=== PATIENT | female | born 1945 | race Caucasian/White ===

== ENCOUNTER 2020-04-15 16:49 | Outpatient (REF) | payer MEDICARE, SELFPAY ==
[2020-04-15 22:09] LABS: ALT 31 U/L (14-59); AST 29 U/L (15-37); Albumin 3.8 g/dL (3.4-5.0); Alkaline Phosphatase 166 U/L (46-116); Anion Gap 8.8 mmol/L (3-11); BUN 21 mg/dL (7-18); Bilirubin, Total 0.4 mg/dL (0.2-1.0); CO2 28.2 mmol/L (21.0-32.0); CREATININE 1.19 mg/dL (0.55-1.02); Calcium 9.1 mg/dL (8.5-10.1); Chloride 105 mmol/L (98-107); Estimated GFR 44.34 (mL/min/1.73m2); Glucose 77 mg/dL (74-106); Magnesium 2.3 mg/dL (1.8-2.4); Potassium 4.3 mmol/L (3.5-5.1); Sodium 142 mmol/L (136-145); Total Protein 7.6 g/dL (6.4-8.2); Vitamin B12 444 pg/mL (193-986)
== END 2020-04-15 17:09 ==
LOC: NCHCN 16:49
PROVIDERS: PCP Nurse Practitioner Family; Visit Provider Nurse Practitioner Family
DX: I10 Essential (primary) hypertension (principal); K21.9 Gastro-esophageal reflux disease without esophagitis; Z79.899 Other long term (current) drug therapy
CPT/HCPCS: 80053; 82607; 83735

== ENCOUNTER 2021-09-04 15:33 | Outpatient (REF) | payer MEDICARE, MEDICAID, SELFPAY ==
[2021-09-04 22:04] LABS: Abs Immature Grans 0.02 10^3/uL (0.0-0.06); Absolute Basophil Count 0.05 10^3/uL (0.0-0.2); Absolute Eosinophil Count 0.33 10^3/uL (0.0-0.7); Absolute Lymphocyte Count 1.17 10^3/uL (1.2-3.4); Absolute Neutrophil Count 4.88 10^3/uL (1.2-6.7); Basophils % 0.7; Eosinophils % 4.8; HCT 32.3 % (36.0-46.0); HGB 9.2 g/dL (11.2-15.7); Immature Grans % 0.3; Lymphocytes % 17.1; MCH 22.5 pg (27.0-33.0); MCHC 28.5 % (32.0-36.0); MCV 79.2 fL (80-95); MPV 10.7 fL (8.0-11.0); Monocytes % 5.8; Neutrophils % 71.3; Nucleated RBC 0 %; Platelet Count 314 10^3/uL (130-400); RBC 4.08 10^6/uL (3.93-5.22); RDW 17.8 % (11.7-14.6); RDW-SD 51.1 fL; WBC 6.85 10^3/uL (4.4-10.8)
[2021-09-04 22:23] LABS: ALT 22 U/L (14-59); AST 18 U/L (15-37); Albumin 3.4 g/dL (3.4-5.0); Alkaline Phosphatase 170 U/L (46-116); Anion Gap 5.3 mmol/L (3-11); BUN 21 mg/dL (7-18); Bilirubin, Total 0.3 mg/dL (0.2-1.0); CO2 28.7 mmol/L (21.0-32.0); CREATININE 1.5 mg/dL (0.55-1.02); Calcium 8.8 mg/dL (8.5-10.1); Chloride 105 mmol/L (98-107); Estimated GFR 33.85 (mL/min/1.73m2); Glucose 94 mg/dL (74-106); Magnesium 2.3 mg/dL (1.8-2.4); NT-proBNP 176 pg/mL (<300); Potassium 4.1 mmol/L (3.5-5.1); Sodium 139 mmol/L (136-145); TSH 1.61 uIU/mL (0.36-3.74); Total Protein 7.2 g/dL (6.4-8.2)
[2021-09-04 22:56] LABS: Vitamin D 25 Total 66.3 ng/mL (30-100)
[2021-09-05 13:56] LABS: Iron 28 ug/dL (50-170); Total Iron Binding Capacity 342 ug/dL (250-450); Transferrin Sat 8 % (15-50)
[2021-09-05 14:29] LABS: Ferritin 13 ng/mL (8-252); Vitamin B12 369 pg/mL (193-986)
== END 2021-09-04 15:34 | disposition home or self-care (01) ==
LOC: NCHCN 15:33
PROVIDERS: PCP Nurse Practitioner Family; Visit Provider Nurse Practitioner Family
DX: D64.9 Anemia, unspecified; I10 Essential (primary) hypertension; R06.09 Other forms of dyspnea; R58 Hemorrhage, not elsewhere classified; M85.88 Other specified disorders of bone density and structure, other site
CPT/HCPCS: 80053; 82306; 82607; 82728; 83540; 83550; 83735; 83880; 84443; 85025

== ENCOUNTER 2021-09-30 09:10 | Outpatient (REF) | payer MEDICARE, MEDICAID, SELFPAY ==
[2021-09-29 21:17] LABS: HCT 34.2 % (36.0-46.0); HGB 10.2 g/dL (11.2-15.7); MCH 23.8 pg (27.0-33.0); MCHC 29.8 % (32.0-36.0); MCV 79.9 fL (80-95); MPV 11.1 fL (8.0-11.0); Platelet Count 287 10^3/uL (130-400); RBC 4.28 10^6/uL (3.93-5.22); RDW 20.5 % (11.7-14.6); RDW-SD 59.4 fL; WBC 5.61 10^3/uL (4.4-10.8)
[2021-09-29 22:13] LABS: ALT 24 U/L (14-59); AST 25 U/L (15-37); Albumin 3.5 g/dL (3.4-5.0); Alkaline Phosphatase 215 U/L (46-116); Anion Gap 11.3 mmol/L (3-11); BUN 23 mg/dL (7-18); Bilirubin, Total 0.3 mg/dL (0.2-1.0); CO2 25.7 mmol/L (21.0-32.0); CREATININE 1.4 mg/dL (0.55-1.02); Chloride 104 mmol/L (98-107); Estimated GFR 36.56 (mL/min/1.73m2); Glucose 97 mg/dL (74-106); Potassium 4.1 mmol/L (3.5-5.1); Sodium 141 mmol/L (136-145); Total Protein 7.2 g/dL (6.4-8.2)
== END 2021-09-30 09:11 | disposition home or self-care (01) ==
LOC: NCHCN 09:10
PROVIDERS: PCP Nurse Practitioner Family; Visit Provider Nurse Practitioner Family
DX: D64.9 Anemia, unspecified (principal); I10 Essential (primary) hypertension; N28.9 Disorder of kidney and ureter, unspecified
CPT/HCPCS: 80053; 85027

== ENCOUNTER 2021-10-21 13:43 | Outpatient (REF) | payer MEDICARE, MEDICAID, SELFPAY ==
[2021-10-21 15:38] LABS: Bacteria Few HPF (Negative); Crystals Moderate Amorphous HPF (Negative); Mucus Negative (Negative); RBC Negative HPF (0-2); WBC Negative HPF (0-5)
[2021-10-21 15:39] LABS: C & S Indicated? No; Epithelial Cells Many HPF (Negative)
[2021-10-21 16:25] LABS: COMMENT (LAB VIEW ONLY) 164.97 mg/dL; Microalb ug/mg Crea 11.8 ug/mg Cr
== END 2021-10-21 13:44 | disposition home or self-care (01) ==
LOC: NCHCN 13:43
PROVIDERS: PCP Nurse Practitioner Family; Visit Provider Nurse Practitioner Family
DX: N28.9 Disorder of kidney and ureter, unspecified (principal)
CPT/HCPCS: 81015; 82043; 82570

== ENCOUNTER 2021-10-28 09:59 | Outpatient (REF) | payer MEDICARE, MEDICAID, SELFPAY ==
[2021-10-29 10:15] LABS: HBs Antibody, Quant <3.1 mIU/mL (See Note); Hepatitis B Surface Ab Negative (See Note)
[2021-10-29 11:02] LABS: Alpha 1 Antitrypsin,Serum 175 mg/dL (90-200)
[2021-10-29 11:11] LABS: Hepatitis C Ab w Rflx HCV PCR Negative (Negative)
[2021-10-29 13:07] LABS: IgA 268 mg/dL (85-499); Interpretation (See Note); Tissue Transglutaminase IgA <1.2 U/mL (<4.0)
[2021-10-30 19:56] LABS: Mitochondrial Ab, M2 0.8 U
== END 2021-10-28 10:00 | disposition home or self-care (01) ==
LOC: LBN 09:59
PROVIDERS: Internal Medicine Gastroenterology; PCP Nurse Practitioner Family; Visit Provider Nurse Practitioner Family
DX: K92.1 Melena (principal); R79.89 Other specified abnormal findings of blood chemistry; R94.5 Abnormal results of liver function studies
CPT/HCPCS: 82784; 83516; 86706; 86803; 82103; 83915

== ENCOUNTER 2021-11-20 14:08 | Outpatient (REF) | payer MEDICARE, MEDICAID, SELFPAY ==
[2021-11-21 16:42] LABS: COVID-19 RT-PCR UVMMC Result Negative (Negative)
== END 2021-11-20 14:09 | disposition home or self-care (01) ==
LOC: NCHCN 14:08
PROVIDERS: PCP Nurse Practitioner Family; Visit Provider Nurse Practitioner Family
DX: Z20.822 Contact with and (suspected) exposure to COVID-19 (principal); J06.9 Acute upper respiratory infection, unspecified
CPT/HCPCS: U0003; U0005

== ENCOUNTER 2022-02-19 15:45 | Outpatient (REF) | payer MEDICARE, MEDICAID, SELFPAY ==
[2022-02-19 17:55] LABS: HGB 11.9 g/dL (11.2-15.7); MCHC 30.5 % (32.0-36.0); MCV 88.6 fL (80-95); MPV 10.9 fL (8.0-11.0); Platelet Count 260 10^3/uL (130-400); RDW 15.2 % (11.7-14.6); RDW-SD 49.2 fL; WBC 6.89 10^3/uL (4.4-10.8)
[2022-02-19 18:13] LABS: ALT 42 U/L (14-59); AST 31 U/L (15-37); Albumin 3.4 g/dL (3.4-5.0); Alkaline Phosphatase 227 U/L (46-116); Anion Gap 9.8 mmol/L (3-11); BUN 22 mg/dL (7-18); Bilirubin, Total 0.4 mg/dL (0.2-1.0); CO2 27.2 mmol/L (21.0-32.0); CREATININE 1.3 mg/dL (0.55-1.02); Calcium 9.1 mg/dL (8.5-10.1); Chloride 104 mmol/L (98-107); Estimated GFR 39.82 (mL/min/1.73m2); Glucose 106 mg/dL (74-106); Potassium 3.9 mmol/L (3.5-5.1); Sodium 141 mmol/L (136-145); Total Protein 7.2 g/dL (6.4-8.2)
== END 2022-02-19 15:46 | disposition home or self-care (01) ==
LOC: NCHCN 15:45
PROVIDERS: PCP Nurse Practitioner Family; Visit Provider Nurse Practitioner Family
DX: L65.9 Nonscarring hair loss, unspecified (principal); D50.9 Iron deficiency anemia, unspecified; I10 Essential (primary) hypertension; N28.9 Disorder of kidney and ureter, unspecified; R74.8 Abnormal levels of other serum enzymes
CPT/HCPCS: 80053; 85027

== ENCOUNTER 2022-08-25 19:00 | Outpatient (REF) | payer MEDICARE, SELFPAY ==
[2022-08-25 15:03] LABS: HCT 38.3 % (36.0-46.0); HGB 12.1 g/dL (11.2-15.7); MCH 28.1 pg (27.0-33.0); MCHC 31.6 % (32.0-36.0); MCV 89 fL (80-95); MPV 10.7 fL (8.0-11.0); Platelet Count 249 10^3/uL (130-400); RBC 4.31 10^6/uL (3.93-5.22); RDW 13.9 % (11.7-14.6); RDW-SD 45.2 fL; WBC 5.48 10^3/uL (4.4-10.8)
[2022-08-25 16:01] LABS: ALT 26 U/L (14-59); AST 25 U/L (15-37); Albumin 3.4 g/dL (3.4-5.0); Alkaline Phosphatase 201 U/L (46-116); Anion Gap 7.4 mmol/L (3-11); BUN 21 mg/dL (7-18); Bilirubin, Total 0.4 mg/dL (0.2-1.0); CO2 29.6 mmol/L (21.0-32.0); CREATININE 1.2 mg/dL (0.55-1.02); Calcium 9.4 mg/dL (8.5-10.1); Chloride 104 mmol/L (98-107); Estimated GFR 46.91 (mL/min/1.73m2); Glucose 97 mg/dL (74-106); Potassium 4.1 mmol/L (3.5-5.1); Sodium 141 mmol/L (136-145); Total Protein 7.1 g/dL (6.4-8.2)
== END 2022-08-25 19:01 | disposition home or self-care (01) ==
LOC: NCHCN 19:00
PROVIDERS: PCP Nurse Practitioner Family; Visit Provider Nurse Practitioner Family
DX: I10 Essential (primary) hypertension (principal); R39.89 Other symptoms and signs involving the genitourinary system; D50.9 Iron deficiency anemia, unspecified; R74.8 Abnormal levels of other serum enzymes
CPT/HCPCS: 80053; 85027; 83915

== ENCOUNTER 2023-07-06 10:05 | Outpatient (REF) | payer MEDICARE, SELFPAY ==
[2023-07-06 15:44] LABS: HCT 36.9 % (36.0-46.0); HGB 11.6 g/dL (11.2-15.7); MCH 27.6 pg (27.0-33.0); MCHC 31.4 % (32.0-36.0); MCV 88 fL (80-95); MPV 10.9 fL (8.0-11.0); Platelet Count 221 10^3/uL (130-400); RDW 14.5 % (11.7-14.6); RDW-SD 46.4 fL; WBC 5.94 10^3/uL (4.4-10.8)
[2023-07-06 16:14] LABS: ALT 28 U/L (14-59); AST 31 U/L (15-37); Albumin 3.5 g/dL (3.4-5.0); Alkaline Phosphatase 266 U/L (46-116); Anion Gap 5.6 mmol/L (3-11); BUN 21 mg/dL (7-18); Bilirubin, Total 0.5 mg/dL (0.2-1.0); CO2 28.4 mmol/L (21.0-32.0); CREATININE 1.1 mg/dL (0.55-1.02); Calcium 9.3 mg/dL (8.5-10.1); Chloride 104 mmol/L (98-107); Estimated GFR 51.75 (mL/min/1.73m2); Ferritin 53 ng/mL (8-252); Glucose 90 mg/dL (74-106); Potassium 4.3 mmol/L (3.5-5.1); Sodium 138 mmol/L (136-145); Total Protein 7.7 g/dL (6.4-8.2)
[2023-07-06 16:27] LABS: Iron 49 ug/dL (50-170); Total Iron Binding Capacity 313 ug/dL (250-450); Transferrin Sat 16 % (15-50)
== END 2023-07-06 10:06 | disposition home or self-care (01) ==
LOC: NCHCN 10:05
PROVIDERS: PCP Nurse Practitioner Family; Visit Provider Nurse Practitioner Family
DX: D50.9 Iron deficiency anemia, unspecified (principal); R74.8 Abnormal levels of other serum enzymes; I10 Essential (primary) hypertension; N28.9 Disorder of kidney and ureter, unspecified
CPT/HCPCS: 80053; 85027; 82728; 83540; 83550

== ENCOUNTER 2024-05-22 15:18 | Outpatient (REF) | payer MEDICARE, SELFPAY ==
[2024-05-22 21:33] LABS: HCT 34.3 % (36.0-46.0); HGB 10.9 g/dL (11.2-15.7); MCH 27.9 pg (27.0-33.0); MCHC 31.8 % (32.0-36.0); MCV 88 fL (80-95); MPV 10.3 fL (8.0-11.0); Platelet Count 270 10^3/uL (130-400); RBC 3.91 10^6/uL (3.93-5.22); RDW 15.3 % (11.7-14.6); RDW-SD 48.7 fL; WBC 5.45 10^3/uL (4.4-10.8)
[2024-05-22 21:46] LABS: Iron 40 ug/dL (50-170); Total Iron Binding Capacity 287 ug/dL (250-450); Transferrin Sat 14 % (15-50)
[2024-05-22 22:07] LABS: ALT 29 U/L (14-59); AST 28 U/L (15-37); Albumin 3.2 g/dL (3.4-5.0); Alkaline Phosphatase 249 U/L (46-116); Anion Gap 8.7 mmol/L (3-11); BUN 27 mg/dL (7-18); Bilirubin, Total 0.45 mg/dL (0.2-1.0); CO2 28.3 mmol/L (21.0-32.0); CREATININE 1.5 mg/dL (0.55-1.02); Calcium 9.1 mg/dL (8.5-10.1); Calculated LDL 82 mg/dL (<100); Chloride 105 mmol/L (98-107); Cholesterol 154 mg/dL (<200); Estimated GFR 35.45 (mL/min/1.73m2); Glucose 81 mg/dL (74-106); HDL Cholesterol 44 mg/dL (40-60); Potassium 4.2 mmol/L (3.5-5.1); Sodium 142 mmol/L (136-145); Total Protein 7.5 g/dL (6.4-8.2); Triglyceride 140 mg/dL (<150)
== END 2024-05-22 15:19 | disposition home or self-care (01) ==
LOC: NCHCN 15:18
PROVIDERS: PCP Nurse Practitioner Family; Visit Provider Nurse Practitioner Family
DX: N18.9 Chronic kidney disease, unspecified (principal); M85.89 Other specified disorders of bone density and structure, multiple sites; D50.9 Iron deficiency anemia, unspecified; Z51.81 Encounter for therapeutic drug level monitoring; E78.5 Hyperlipidemia, unspecified
CPT/HCPCS: 80053; 80061; 82306; 85027; 83540; 83550; 83735; 83915

== ENCOUNTER 2025-04-30 18:29 | Outpatient (REF) | payer MEDICARE, SELFPAY ==
[2025-04-30 21:35] LABS: HCT 36.1 % (36.0-46.0); MCH 31.1 pg (27.0-33.0); MCHC 33.2 % (32.0-36.0); MCV 94 fL (80-95); MPV 10.7 fL (8.0-11.0); Platelet Count 217 10^3/uL (130-400); RBC 3.86 10^6/uL (3.93-5.22); RDW 13.4 % (11.7-14.6)
[2025-04-30 22:05] LABS: ALT 28 U/L (14-59); AST 32 U/L (15-37); Albumin 3.5 g/dL (3.4-5.0); Alkaline Phosphatase 277 U/L (46-116); Anion Gap 5.2 mmol/L (3-11); BUN 24 mg/dL (7-18); Bilirubin, Total 0.3 mg/dL (0.2-1.0); CO2 30.8 mmol/L (21.0-32.0); CREATININE 1.4 mg/dL (0.55-1.02); Chloride 103 mmol/L (98-107); Estimated GFR 38.27 (mL/min/1.73m2); Glucose 95 mg/dL (74-106); Potassium 4.6 mmol/L (3.5-5.1); Sodium 139 mmol/L (136-145); Total Protein 7.7 g/dL (6.4-8.2); Vitamin D 25 Total 87 ng/mL (30-100)
== END 2025-04-30 18:30 | disposition home or self-care (01) ==
LOC: NCHCN 18:29
PROVIDERS: PCP Nurse Practitioner Family; Visit Provider Nurse Practitioner Family
DX: M81.0 Age-related osteoporosis without current pathological fracture (principal); I10 Essential (primary) hypertension
CPT/HCPCS: 80053; 82306; 85027